=== PATIENT | female | born 2005 | race Asian ===

== ENCOUNTER → 2024-10-27 16:35 | Outpatient (CLI) | payer OTHER, SELFPAY ==
--- NOTE | 2024-10-27 16:39 | DI.RAD.S_ITS ---
PROCEDURE: XR RIBS BI MIN 4V W CXR1V INDICATIONS: Left anterior, right lateral posterior TECHNIQUE: 4 views of the ribs were acquired, along with a single view chest. COMPARISON: None. FINDINGS: Surgical changes and devices: None. Bones and chest wall: No fractures or dislocations. No suspicious bony lesions. Overlying soft tissues appear unremarkable. Lungs and pleura: No pleural effusions or pneumothorax. Lungs appear clear. Mediastinum: Mediastinal contours appear normal. Heart size is normal. IMPRESSION: No acute, displaced rib fractures or pneumothorax. Dictated by: Anibal Toro M.D. on 10/28/2024 at 17:18 Approved by: Anibal Toro M.D. on 10/28/2024 at 17:19
== END ==
LOC: RAD 16:37
PROVIDERS: Referring Provider Nurse Practitioner Family; Visit Provider Nurse Practitioner Family
DX: S20.219A Contusion of unspecified front wall of thorax, initial encounter (principal); X58.XXXA Exposure to other specified factors, initial encounter
CPT/HCPCS: 71111

== ENCOUNTER 2025-01-11 20:34 | Emergency (ER) | payer OTHER, SELFPAY ==
[2025-01-11 20:41] VITALS: BP 134/65; PULSE 52; RESP 14; TEMP 36.9; O2SAT 100; BMI 27.4
[2025-01-11] MEDS: IBUPROFEN SUSP 100 MG/5 ML UDC 705 MG PO (20:52)
[2025-01-11 21:04] LABS: Strep Grp A by PCR Rapid Negative (Negative)
--- NOTE | 2025-01-11 22:19 | ED.URI ---
HPI - URI/Sore Throat General Chief Complaint: Upper Respiratory Symptoms Stated Complaint: pain swallowing, burning in throat x5days Time Seen by Provider: 01/11/25 20:44 Source: patient Mode of arrival: Ambulatory History of Present Illness HPI Narrative: 19-year-old female presents with 5 days of sore throat feels like swallowing nails but able to eat and drink no difficulty. She denies fever chills body aches cough sinus congestion earache. She denies sick contacts has taken Tylenol and ibuprofen with no significant relief of her symptoms. Other than what is stated 14 point review of system is negative. Related Data Previous Rx's ?Medication ?Instructions ?Recorded prednisone 20 mg tablet 20 mg PO BID #10 tabs 01/11/25 Allergies Allergy/AdvReac Type Severity Reaction Status Date / Time No Known Drug Allergies Allergy Unverified 01/11/25 20:42 Review of Systems Review of Systems ROS Unobtainable: All systems reviewed & are unremarkable except as noted in HPI and below Patient History Smoking Status: Never smoker Exam Narrative Exam Narrative: GENERAL: [19] year old patient appears stated age. Well-developed patient, in mild distress. HEAD: Atraumatic. Normocephalic. EYES: Pupils equal round and reactive. Extraocular motions intact. No scleral icterus. No injection or drainage. ENT: Nose without bleeding, purulent drainage. Throat without erythema, tonsillar hypertrophy or exudate. Airway patent. NECK: Trachea midline. Non tender CARDIOVASCULAR: Regular rate and rhythm without murmurs, gallops, or rubs. RESPIRATORY: Clear to auscultation. Breath sounds equal bilaterally. No wheezes, rales, or rhonchi. GASTROINTESTINAL: Abdomen soft, non-tender, nondistended. EXTREMITIES: No edema or joint tenderness. BACK: Nontender without deformity or crepitance. No flank tenderness. NEURO: AOx3. SKIN: No rash or erythema of visible areas Initial Vital Signs Initial Vital Signs: Vital Signs Temperature 98.4 F 01/11/25 20:41 Pulse Rate 52 L 01/11/25 20:41 Respiratory Rate 14 01/11/25 20:41 Blood Pressure 134/65 01/11/25 20:41 Pulse Oximetry 100 01/11/25 20:41 Oxygen Delivery Method Room Air 01/11/25 20:41 Course Orders Ordered: ED Orders 01/11/25 20:48 Strep Grp A by PCR Rapid Stat Discontinued Medications Ibuprofen (Ibuprofen Susp 100 Mg/5 Ml Udc) 705 mg 10 mg/kg (705 mg) PO NOW ONE Stop: 01/11/25 20:50 Last Admin: 01/11/25 20:52 Dose: 705 mg Documented By: RADHA Vital Signs Vital signs: Vital Signs - 8 hr 01/11/25 20:41 Temperature 98.4 F Pulse Rate 52 L Respiratory Rate 14 Blood Pressure 134/65 Pulse Oximetry 100 Oxygen Delivery Method Room Air MDM - URI/Sore Throat Lab Data Labs: Lab Results 01/11/25 Range/Units 20:48 Group A Strep (PCR) Negative (Negative) MDM Narrative Medical decision making narrative: Vital signs, nurse triage note, medication list, previous ER visits and all imaging studies reviewed. Patient given prednisone here and will DC on prednisone. Differential diagnosis strep, flu, covid, RSV, strep, mono. Discharge Plan Departure Patient Disposition: Home Clinical Impression: Acute viral pharyngitis Instructions: DI for Viral Pharyngitis Activity Restrictions/Additional Instructions: Return with new or worsening. Take your medicines. Follow up PCP in 1-2 weeks if no improvement in symptoms. Prescriptions: New prednisone 20 mg tablet 20 mg PO BID Qty: 10 0RF Referrals: Miscellaneous,Doctor, MD [Primary Care Provider, Medical] Stand Alone Forms: Patient Portal/API
[2025-01-11 22:58] VITALS: BP 128/60; PULSE 54; RESP 14; O2SAT 100
== END 2025-01-11 23:00 | disposition home or self-care (01) ==
PROVIDERS: Emergency Provider Family Medicine
DX: J02.9 Acute pharyngitis, unspecified (principal)
CPT/HCPCS: 87651; 99283